=== PATIENT | female | born 1985 | race Caucasian/White ===

== ENCOUNTER 2019-03-06 09:07 | Emergency (ER) | payer BC ==
[~2019-03-06] VITALS: Ht 160 cm; Wt 69.5 kg
[2019-03-06 09:12] VITALS: BP 115/78
== END 2019-03-06 10:05 | disposition home or self-care (01) ==
LOC: ER 09:08
DX: O9A.212 Injury, poisoning and certain other consequences of external causes complicating pregnancy, second trimester (principal); S60.445A External constriction of left ring finger, initial encounter; Z91.030 Bee allergy status; X58.XXXA Exposure to other specified factors, initial encounter; Y93.89 Activity, other specified; Y92.89 Other specified places as the place of occurrence of the external cause; Y99.9 Unspecified external cause status
CPT/HCPCS: 99281